=== PATIENT | female | born 1990 | race Caucasian/White ===

== ENCOUNTER 2021-12-31 08:43 | Outpatient (REF) | payer OTHER, SELFPAY ==
[2021-12-31 16:40] LABS: CT PCR NOT DETECTED (Not Detect.); NG PCR NOT DETECTED (Not Detect.)
== END 2021-12-31 08:44 | disposition home or self-care (01) ==
LOC: HO.LNP 08:43
PROVIDERS: Visit Provider Advanced Practice Midwife
DX: Z01.419 Encounter for gynecological examination (general) (routine) without abnormal findings (principal)
CPT/HCPCS: 87491; 87591; 88142

== ENCOUNTER 2022-03-09 10:29 | Outpatient (REF) | payer OTHER, SELFPAY ==
--- NOTE | ~2022-03-09 | XR_ITS ---
EXAMINATION: XR THORACIC SPINE CLINICAL INFORMATION: Sprain of the ligaments of thoracic spine COMPARISON: None TECHNIQUE: 3 views of the thoracic spine were obtained. FINDINGS: There is no fracture or bone destruction seen and the vertebral alignment is normal. There is no disc space narrowing. There is no abnormality of the paraspinal soft tissues. XR/XR thoracic spine 3V IMPRESSION: Unremarkable examination.
== END 2022-03-09 10:30 | disposition home or self-care (01) ==
LOC: HO.XRAY 10:29
PROVIDERS: PCP Nurse Practitioner Family; Visit Provider Nurse Practitioner Primary Care
DX: S23.3XXA Sprain of ligaments of thoracic spine, initial encounter (principal); J30.2 Other seasonal allergic rhinitis; X58.XXXA Exposure to other specified factors, initial encounter; Y93.9 Activity, unspecified; Y92.9 Unspecified place or not applicable; Y99.9 Unspecified external cause status
CPT/HCPCS: 72072

== ENCOUNTER 2022-07-28 10:00 | Outpatient (RCR) | payer OTHER, SELFPAY | END 2022-07-28 10:40 | disposition home or self-care (01) | LOC: HO.PT 10:00 | PROVIDERS: Visit Provider Nurse Practitioner Primary Care | DX: S23.3XXA Sprain of ligaments of thoracic spine, initial encounter (principal); J30.2 Other seasonal allergic rhinitis | CPT/HCPCS: 97110; 97112; 97140; 97161 ==

== ENCOUNTER 2022-09-30 11:45 | Emergency (ER) | payer OTHER, SELFPAY ==
[2022-09-30 11:46] VITALS: BP 144/90; PULSE 76; RESP 16; TEMP 36.6; O2SAT 99; BMI 22.6
--- NOTE | 2022-09-30 11:47 | ED_ITS ---
HPI - General Adult General Chief complaint: Dizziness Stated complaint: Dizziness Time Seen by Provider: 09/30/22 12:07 Source: patient Mode of arrival: ambulatory Limitations: no limitations History of Present Illness HPI narrative: 32-year-old female who presents emergency department for evaluation of dizziness and nausea. The patient states that when she woke up this morning and was in bed she experienced dizziness with minimal movement of her head. She describes the dizziness as a room spinning sensation she states that if she moves her head slightly to the left or right the dizziness gets worse. She had associated nausea but no vomiting. She states she also feels very lightheaded. He patient denied fever or chills. She states she has rhinorrhea but she attributes this to seasonal allergies. She denied sore throat, cough, chest pain, shortness of breath. She had nausea with no vomiting. She states she did have a soft bowel movement today. She denied dark bowel movements or bloody bowel movements. This is the patient's 1st episode of vertigo. Related Data Home Medications Medication Instructions Recorded Confirmed cetirizine 10 mg tablet (Zyrtec) 10 mg PO DAILY PRN 10/27/21 fluticasone propionate 50 1 spray intranasal BID 10/27/21 mcg/actuation nasal spray,suspension ibuprofen 200 mg tablet (IBU-200) 200 mg PO Q6H PRN 10/27/21 Previous Rx's Medication Instructions Recorded meclizine 25 mg tablet (Dramamine 25 mg PO TID PRN dizziness #20 tabs 09/30/22 Less Drowsy) ondansetron 4 mg disintegrating 4 mg PO Q6-8H PRN nausea and 09/30/22 tablet vomiting #14 tabs Allergies Allergy/AdvReac Type Severity Reaction Status Date / Time No Known Allergies Allergy Verified 09/30/22 11:49 Review of Systems Review of Systems: Yes all other systems are reviewed and are negative [facility] Past Medical History [facility] Narrative: Past medical history: None. Surgical history: Right ear surgery when she was a child, tonsillectomy. 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 She denies tobacco, alcohol and drug use. Medical History Back pain Headache Surgical History Hx of tonsillectomy Family History Family History Father Substance use disorder Alcoholism Mother Substance use disorder Mental health disorder Alcoholism Social History Social History Household Members: Spouse Housing: Apartment Alcohol intake: never Patient Tobacco Use Status: Never used Tobacco Smoked in Last 30 Days: No e-Cigarette/Vaping Use: Never Used Second Hand Smoke Exposure: No Use of substances other than those prescribed or required for medical reasons: No Advance Directives: No Advance Directives Information Provided: No Patient : No service: No Current occupational status: employed 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 Current occupational exposures/hazards: No Sexual orientation: Straight/Heterosexual Gender identity: Female Cognitive needs: No Hearing needs: No Vision needs: No Physical Exam ED Vital Signs: Vital Signs - 24 hr 09/30/22 11:46 09/30/22 13:03 09/30/22 13:07 Temperature 98 F Pulse Rate 76 74 75 Respiratory Rate 16 Blood Pressure 144/90 H 91/55 L 101/63 Pulse Oximetry 99 Oxygen Delivery Method Room Air 09/30/22 13:08 Temperature Pulse Rate 70 Respiratory Rate Blood Pressure 117/57 L Pulse Oximetry Oxygen Delivery Method BMI result Body Mass Index 22.6 Blood pressure was slightly elevated 144/90 otherwise vital signs were normal Exam: General: Awake, alert in no distress Head: Normocephalic, atraumatic EENT: PERRL, Lids normal, sclera normal, conjunctiva normal, nose normal , ears normal, throat without erythema or exudates Neck: Supple, no adenopathy, trachea midline and nontender Lung: breath sounds symmetric, no wheezing, rales or rhonchi Chest: symmetric movement, nontender Heart: regular rate and rhythm, normal S1, S2 no murmurs or rubs Abdomen: soft, non-tender, nondistended, normal bowel sounds Back: no vertebral tenderness, no CVAT Extremities: no deformities, moves all extremities symmetrically Skin: no rashes, no lesion, normal color and warmth Neuro: Awake, alert, oriented, normal speech, cranial nerves intact, moves all extremities symmetrically, patient has good rapid finger movement, good [id number] and normal heel to leyva. With minimal position change her head she has vertigo symptoms with nystagmus. Psych: Pleasant, cooperative Course Course Course Narrative: This is an RME: Additional HPI, ROS, PE not included below will be deferred to primary provider. Patient is a 32 year old healthy female presenting with dizziness and feeling like the room is spinning that started this morning. Medications Administered Discontinued Medications Generic Name Dose Route Start Last Admin Trade Name Freq PRN Reason Stop Dose Admin Sodium Chloride 1,000 mls @ 999 mls/hr 09/30/22 12:00 09/30/22 13:15 Ns IV 09/30/22 13:00 999 mls/hr .Q1H1M YSABEL Administration Meclizine HCl 25 mg 09/30/22 11:47 09/30/22 13:17 Meclizine Hcl 25 Mg Tablet PO 09/30/22 11:48 25 mg ONCE ONE Administration Ondansetron HCl 4 mg 09/30/22 12:20 09/30/22 13:15 Ondansetron Hcl 4 Mg/2 Ml Vial IVPUSH 09/30/22 12:21 4 mg ONCE ONE Administration Medical Decision Making Medical Decision Making [facility] Narrative: 32-year-old female with no significant medical history who presents emergency department for evaluation of positional vertigo associated with nausea with no prodrome symptoms with symptoms starting suddenly today while she was in bed. Patient's vital signs did reveal an elevated blood pressure but this is most likely secondary to anxiety. The patient had a normal cerebellar and neurologic exam. She does have easily inducible vertigo with nystagmus with position change of her head. Following evaluation was ordered on the patient: CBC, CMP, quantitative beta-hCG, magnesium, 12 EKG. I ordered IV placement, normal saline x1 L, meclizine 25 mg orally and Zofran 4 mg IV. 1414: Patient's laboratory evaluation was unremarkable. Patient felt better after the above treatment. Patient's presentation is consistent with benign positional vertigo Patient was given prescriptions for meclizine and Zofran. She was given a work note for 4 days. She was given printed and verbal instructions and discharged home. Differential Diagnosis Differential Diagnoses: The differential diagnosis associated with the presentation includes Differential diagnosis includes but is not limited to cerebral stroke, benign positional vertigo, anemia, electrolyte abnormality, , viral syndrome Admission/Observation Consideration of admission/observation: Escalation of care including admission/observation considered Lab Data MDM Lab Attestation statement: I reviewed the patient's lab results. My independent interpretation patient's laboratory evaluation is as follows: CBC and CMP were normal. Quantitative beta-hCG was negative. This was a normal evaluation. 09/30/22 12:00 09/30/22 12:00 Labs: Lab Results 09/30/22 09/30/22 09/30/22 Range/Units 12:00 12:00 12:00 WBC 7.3 (4.8-10.8) X10*3/uL RBC 4.57 (4.20-5.50) X10*6/uL Hgb 13.3 (12.0-16.0) g/dl Hct 40.0 (37.0-47.0) % MCV 87.5 (80.0-98.0) fL MCH 29.1 (27.0-33.0) pg MCHC 33.3 (31.0-35.0) g/dl RDW 12.8 (11.0-16.0) % Plt Count 186 (160-400) X10*3/uL MPV 10.6 (9.4-12.3) fL Immature Gran % (Auto) 0.3 (0.0-0.4) % Neut % (Auto) 71.8 (45-73) % Lymph % (Auto) 20.7 (20-40) % [place] % (Auto) 5.9 (2-11) % Eos % (Auto) 0.8 (0-4) % Baso % (Auto) 0.5 (0-2) % Lymph # (Auto) 1.5 (1.2-4.9) X10*3/uL [place] # (Auto) 0.4 (0.1-1.2) X10*3/uL Eos # (Auto) 0.1 (0.0-0.4) X10*3/uL Baso # (Auto) 0.0 (0.0-0.2) X10*3/uL Abs Immat Gran (auto) 0.02 (0.00-0.03) X10*3/uL Absolute Neuts (auto) 5.3 (2.0-8.3) x10*3/uL Absolute Nucleated RBC 0.000 (0.0-0.012) X10*3/uL Nucleated RBC % (auto) 0.0 (0.0-0.2) /100WBC Sodium 137 (135-145) mmol/L Potassium 4.0 (3.3-5.1) mmol/L Chloride 107 (96-108) mmol/L Carbon Dioxide 24 (22-29) mmol/L Anion Gap 10 L (12-20) BUN 9 (9-16) mg/dL Creatinine 0.69 (0.5-1.4) mg/dL Estim Creat Clear Calc 102.9 Estimated GFR > 60 Random Glucose 94 (60-115) mg/dL Calcium 9.6 (8.4-10.2) mg/dL Magnesium 2.1 (1.6-2.6) mg/dL Total Bilirubin 0.7 (0.0-1.0) mg/dL AST 11 (5-31) U/L ALT 7 (0-31) U/L Alkaline Phosphatase 43 (39-117) U/L Total Protein 7.6 (6.5-8.0) g/dL Albumin 4.5 (3.5-5.0) g/dL Beta HCG, Quant < 2 mIU/mL Discharge Plan Discharge Clinical Impression: Nausea Benign positional vertigo Qualifiers: Laterality: unspecified laterality Qualified Code(s): H81.10 - Benign paroxysmal vertigo, unspecified ear Patient Disposition: Home, Self-Care Instructions: Benign Paroxysmal Positional Vertigo (ED) Additional Instructions: Your blood work was normal. Your symptoms are consistent with benign positional vertigo. This is often caused by a viral infection several weeks ago or a viral infection that you have now. The vertigo sometimes is bad over several days and should get better within 2 weeks. Take meclizine 25 mg pills, 1 pill 3 times a day for the next 3-4 days for dizziness then as needed for dizziness. This medication will make you sleepy. Do not drive or work while taking this medication. Take Zofran ODT 4 mg pills, 1 pill dissolved in your mouth every 8 hours as needed for nausea and vomiting. Follow-up with your doctor in 2 days. Please return to the emergency department if your symptoms get worse or if you d evelop any symptoms that are concerning to you. Please see work note Prescriptions: New meclizine [Dramamine Less Drowsy] 25 mg tablet 25 mg PO TID PRN (Reason: dizziness) Qty: 20 0RF ondansetron 4 mg tablet,disintegrating 4 mg PO Q6-8H PRN (Reason: nausea and vomiting) Qty: 14 0RF No Action fluticasone propionate 50 mcg/actuation spray,suspension 1 spray intranasal BID cetirizine [Zyrtec] 10 mg tablet 10 mg PO DAILY PRN ibuprofen [IBU-200] 200 mg tablet 200 mg PO Q6H PRN
--- NOTE | 2022-09-30 11:48 | ECG_ITS ---
Test Reason : DIZZINESS Blood Pressure : / mmHG Vent. Rate : 078 BPM Atrial Rate : 078 BPM P-R Int : 134 ms QRS Dur : 078 ms QT Int : 370 ms P-R-T Axes : 067 031 042 degrees QTc Int : 421 ms Normal sinus rhythm Normal ECG No previous ECGs available Referred By: Harrison Stallworth Electronically Signed By:Edmar Burris
[2022-09-30 12:05] LABS: MANUAL DIFF FLAG NO
[2022-09-30 12:06] LABS: Basophils Percent Auto 0.5 % (0-2); Eosinophils Absolute Auto 0.1 X10*3/uL (0.0-0.4); Eosinophils Percent Auto 0.8 % (0-4); Hemoglobin 13.3 g/dl (12.0-16.0); Imm Gran Abs Auto 0.02 X10*3/uL (0.00-0.03); Imm Gran Pct Auto 0.3 % (0.0-0.4); Lymphocytes Absolute Auto 1.5 X10*3/uL (1.2-4.9); Lymphocytes Percent Auto 20.7 % (20-40); Mean Corpuscular HGB Conc 33.3 g/dl (31.0-35.0); Mean Corpuscular Hemoglobin 29.1 pg (27.0-33.0); Mean Corpuscular Volume 87.5 fL (80.0-98.0); Mean Platelet Volume 10.6 fL (9.4-12.3); Monocytes Absolute Auto 0.4 X10*3/uL (0.1-1.2); Monocytes Percent Auto 5.9 % (2-11); Neutrophils Absolute Auto 5.3 x10*3/uL (2.0-8.3); Neutrophils Percent Auto 71.8 % (45-73); Platelet Count 186 X10*3/uL (160-400); Red Blood Count 4.57 X10*6/uL (4.20-5.50); Red Cell Distribution Width 12.8 % (11.0-16.0); White Blood Count 7.3 X10*3/uL (4.8-10.8)
[2022-09-30 12:21] LABS: Alanine Aminotransferase 7 U/L (0-31); Albumin Level 4.5 g/dL (3.5-5.0); Alkaline Phosphatase 43 U/L (39-117); Anion Gap 10 (12-20); Aspartate Amino Transferase 11 U/L (5-31); Bilirubin Total 0.7 mg/dL (0.0-1.0); Blood Urea Nitrogen 9 mg/dL (9-16); Calcium 9.6 mg/dL (8.4-10.2); Carbon Dioxide 24 mmol/L (22-29); Chloride 107 mmol/L (96-108); Creatinine Clr Calc Pharmacy 102.9; Estimated Glomerular Filt Rate > 60; Glucose Random 94 mg/dL (60-115); Magnesium 2.1 mg/dL (1.6-2.6); Sodium 137 mmol/L (135-145); Total Protein 7.6 g/dL (6.5-8.0)
[2022-09-30 12:38] LABS: HCG Quantitative < 2 mIU/mL
[2022-09-30 13:03] VITALS: BP 91/55; PULSE 74
[2022-09-30 13:07] VITALS: BP 101/63; PULSE 75
[2022-09-30 13:08] VITALS: BP 117/57; PULSE 70
[2022-09-30] MEDS: 0.9 % Sodium Chloride 1,000 ML 999 ML IV (13:15)
[2022-09-30] MEDS: ondansetron HCL 4 MG/2 ML VIAL IVPUSH (13:15)
[2022-09-30] MEDS: Meclizine HCl 25 MG TABLET PO (13:17)
[2022-09-30 14:39] VITALS: BP 106/71; PULSE 73; RESP 16; TEMP 37; O2SAT 98
== END 2022-09-30 14:45 | disposition home or self-care (01) ==
PROVIDERS: Physician Assistant; Emergency Provider Emergency Medicine Emergency Medical Services; PCP Nurse Practitioner Family
DX: H81.10 Benign paroxysmal vertigo, unspecified ear (principal); R11.0 Nausea; Z79.899 Other long term (current) drug therapy
CPT/HCPCS: 36415; 80053; 83735; 84702; 85025; 93005; 99284; 99285; J2405

== ENCOUNTER → 2022-09-30 11:48 | Outpatient (BNV) | payer OTHER, SELFPAY | PROVIDERS: Emergency Provider Emergency Medicine Emergency Medical Services; PCP Nurse Practitioner Family; Visit Provider Internal Medicine Cardiovascular Disease | DX: R42 Dizziness and giddiness (principal) | CPT/HCPCS: 93010 ==